=== PATIENT | male | born 1985 | race Caucasian/White ===

== ENCOUNTER → 2017-03-16 | Outpatient (CLI) | payer OTHER ==
[~2017-03-16] MED LIST: AZIT-21 PO
--- NOTE | 2017-03-16 19:52 | Diagnostic Imaging Report ---
EXAMINATION: Right breast ultrasound. INDICATION: Followup right breast mass. FINDINGS: There is a hypoechoic lobulated homogeneous lesion seen, measuring 4.0 x 1.1 x 2.9 cm in size. This is located at the 4:00 zone. This measures minimally longer in one dimension compared to the prior exams which could relate to minimal growth or difference in technique or measurements. This still has a benign appearance with well defined margins. Minimal internal vascularity with color Doppler is seen. IMPRESSION: Stable to questionably minimally larger hypoechoic mass at the 4:00 zone. 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 Another followup in 9-12 months to document longer term stability is recommended. Earlier followup or MRI evaluation could be considered if the patient notices enlargement or develops new symptoms. ACR BI-RADS Category 3: Probably benign findings. Result letter will be mailed to the patient. Note: At least 10% of breast cancer is not imaged by mammography. Dictated by: Dictated on workstation # [id number]
== END ==
LOC: RAD 14:01
PROVIDERS: ATTEND Family Medicine
DX: N63 Unspecified lump in breast (principal)